=== PATIENT | female | born 1955 | race Caucasian/White ===

== ENCOUNTER 2017-07-08 12:37 | Emergency (ER) | payer BC, OTHER ==
[2017-07-08 12:53] VITALS: BP 105/60; PULSE 87; TEMP 99.7; BMI 27.4
--- NOTE | 2017-07-08 12:54 | PDOC ---
Attending Attestation - HPI HPI: 07/08/17 14:28 The patient is a 61 year old female with a significant PMH of hypothyroidism, anxiety, and depression who presents to the emergency department s/p witnessed syncopal episode today. The patient reports being at Urgent Care for evaluation of flu-like symptoms (102F fever and cough) and dizziness when she had a syncopal episode witnessed by her . She denies any numbness, tingling, or weakness. She denies pre-syncopal chest pain or shortness of breath. Allergies: Sulfonamide antibiotics. <Luís Campbell - Last Filed: 07/08/17 14:28> - Resident Resident Name: Kevin Costa - ED Attending Attestation I have performed the following: I have examined & evaluated the patient, The case was reviewed & discussed with the resident, I agree w/resident's findings & plan, Exceptions are as noted - Physicial Exam PE: GENERAL: Awake, alert, and fully oriented. Appears ill but nontoxic. HEAD: No signs of trauma EYES: PERRLA, EOMI, sclera anicteric, conjunctiva clear ENT: Auricles normal inspection, hearing grossly normal, nares patent, oropharynx clear without exudates. Dry mucosa NECK: Normal ROM, supple, no lymphadenopathy, JVD, or masses LUNGS: Breath sounds equal, clear to auscultation bilaterally. No wheezes, and no crackles HEART: Regular rate and rhythm, normal S1 and S2, no murmurs, rubs or gallops ABDOMEN: Soft, nontender, normoactive bowel sounds. No guarding, no rebound. No masses EXTREMITIES: Normal range of motion, no edema. No clubbing or cyanosis. No cords, erythema, or tenderness NEUROLOGICAL: Cranial nerves II through XII grossly intact. Normal speech, normal gait SKIN: Warm, Dry, normal turgor, no rashes or lesions noted. - Medical Decision Making Suspect symptoms are secondary to influenza. Will give IV hydration in ED, check CE, EKG, CXR. <Stephanie Zheng - Last Filed: 07/11/17 13:56>
[2017-07-08] MEDS ORDERED: SODIUM CHLORIDE 0.9% 1000 ML INFUS.BAG IV ONE (13:24)
[2017-07-08] MEDS ORDERED: ACETAMINOPHEN 1000 MG/100 ML VIAL (NON FORMULARY) IVPB ONE (13:24)
[2017-07-08] MEDS ORDERED: ACETAMINOPHEN INJECTION 100 ML IVPB ONE (13:25)
[2017-07-08 13:27] LABS: BASO % 0.3 % (0-2.0); EOS % 0.1 % (0-4.5); HEMATOCRIT 43.6 % (32.4-45.2); HEMOGLOBIN 14.2 GM/dL (10.7-15.3); LYMPH % 4.1 % (8-40); MCHC 32.5 g/dl (32.0-36.0); MEAN CELL VOLUME 92.3 fl (80-96); MEAN PLT VOLUME 9.3 fl (7.5-11.1); MONO % 7.5 % (3.8-10.2); PLATELET COUNT 146 K/MM3 (134-434); RBC 4.72 M/mm3 (3.60-5.2); RDW 13.4 % (11.6-15.6); WHITE BLOOD COUNT 8.9 K/mm3 (4.0-10.0)
--- NOTE | 2017-07-08 13:46 | PDOC ---
History of Present Illness - General History Source: Patient Exam Limitations: No Limitations - History of Present Illness Initial Comments: 07/08/17 13:27 The patient is a 61F with a PMH of hypothyroidism, anxiety, and depression who presents to the ER after having a syncopal episode. The patient states that she began having flu-like symptoms yesterday, starting with a cough, sore throat, then a fever. She states that she felt dizzy last night, then her symptoms resolved once she laid down. Today, she went to an urgent care and was found to have a fever of 102. While at the urgent care, she had a syncopal episode that was witnessed by her . They both deny any disorientation, shaking, tongue biting, and bowel/bladder incontinence. She denies any CP, SOB, numbness , tingling, or weakness before, during, or after this episode. Her only complaint is dizziness which she describes as both lightheadedness and room spinning, along with a fever. <Kevin Costa - Last Filed: 07/08/17 15:49> <Stephanie Zheng - Last Filed: 07/08/17 16:31> - General Chief Complaint: Syncope/Near Syncope Stated Complaint: SYNCOPE Time Seen by Provider: 07/08/17 12:52 Past History - Past Medical History Anemia: No Asthma: Yes Cancer: No Cardiac Disorders: No CVA: No COPD: No CHF: No Dementia: No Diabetes: No GI Disorders: No Disorders: No HTN: No Hypercholesterolemia: No Liver Disease: No Seizures: No Thyroid Disease: Yes - Surgical History Abdominal Surgery: No Appendectomy: No Cardiac Surgery: No Cholecystectomy: No Lung Surgery: No Neurologic Surgery: No Orthopedic Surgery: Yes (r bunionectomy 2005, r wrist sx 2007) - Suicide/Smoking/Psychosocial Hx Smoking History: Never smoked Have you smoked in the past 12 months: No If you are a former smoker, when did you quit?: 20 years Information on smoking cessation initiated: No Hx Alcohol Use: No Drug/Substance Use Hx: No Substance Use Type: None Hx Substance Use Treatment: No <Kevin Costa - Last Filed: 07/08/17 15:49> <Stephanie Zheng - Last Filed: 07/08/17 16:31> - Past Medical History Allergies/Adverse Reactions: Allergies Allergy/AdvReac Type Severity Reaction Status Date / Time Sulfa (Sulfonamide Allergy Severe Hives Verified 07/08/17 12:40 Antibiotics) Home Medications: Ambulatory Orders Alprazolam 1 mg PO PRN PRN 07/24/15 Levothyroxine [Synthroid -] 112 mcg PO DAILY 07/24/15 Trazodone HCl 100 mg PO HS 07/24/15 Citalopram Hydrobromide [Celexa -] 40 mg PO DAILY 07/08/17 Review of Systems - Review of Systems Able to Perform ROS?: Yes Comments:: 07/08/17 14:08 GENERAL/CONSTITUTIONAL: Positive for fevers and chills. No weakness. HEAD, EYES, EARS, NOSE AND THROAT: Positive for sore throat. No change in vision. No ear pain or discharge. CARDIOVASCULAR: No chest pain, palpitations, or lightheadedness. RESPIRATORY: Positive for cough. No wheezing, shortness of breath, or hemoptysis. GASTROINTESTINAL: Positive for nausea. No vomiting, diarrhea, constipation, or abdominal pain. GENITOURINARY: No dysuria, frequency, hematuria, or change in urination. MUSCULOSKELETAL: Postive for myalgias. No neck or back pain. SKIN: No rash or lesions. NEUROLOGIC: Positive for headache and dizziness and LOC. No numbness, tingling, weakness, or change in strength/sensation. ENDOCRINE: No increased thirst. No abnormal weight change. HEMATOLOGIC/LYMPHATIC: No anemia, easy bleeding, or history of blood clots. ALLERGIC/IMMUNOLOGIC: No hives or skin allergy. Is the patient limited [place]an proficient: No <Kevin Costa - Last Filed: 07/08/17 15:49> *Physical Exam - Vital Signs Last Vital Signs Temp Pulse Resp BP Pulse Ox 99.7 F H 87 18 105/60 95 07/08/17 12:48 07/08/17 12:48 07/08/17 12:48 07/08/17 12:48 07/08/17 12:48 - Physical Exam Comments: 07/08/17 14:10 GENERAL: Well developed, well nourished. Awake and alert. No acute distress. HEENT: Normocephalic, atraumatic. Hearing grossly normal. Moist mucous membranes. PERRLA, EOMI. No conjunctival pallor. Sclera are non-icteric. Oropharynx is clear. NECK: Supple. Full ROM. No JVD. CARDIOVASCULAR: Regular rate and rhythm. No murmurs, rubs, or gallops. PULMONARY: No evidence of respiratory distress. Lungs clear to auscultation bilaterally. No wheezing, rales or rhonchi. ABDOMINAL: Soft. Non-tender. Non-distended. No rebound or guarding. GENITOURINARY: No CVA tenderness bilaterally. MUSCULOSKELETAL: Normal range of motion at all joints. No bony deformities or tenderness. EXTREMITIES: No cyanosis. No clubbing. No edema. No calf tenderness. SKIN: Warm and dry. Normal capillary refill. No rashes. No jaundice. NEUROLOGICAL: Alert, awake, appropriate. Cranial nerves 2-12 intact. No deficits to light touch and temperature in face, upper extremities and lower extremities. No motor deficits in the in face, upper extremities and lower extremities. Finger to nose normal b/l. Normal speech. Gait is normal without ataxia. PSYCHIATRIC: Cooperative. Good eye contact. Appropriate mood and affect. <Kevin Costa - Last Filed: 07/08/17 15:49> - Vital Signs Last Vital Signs Temp Pulse Resp BP Pulse Ox 99.7 F H 87 18 105/60 95 07/08/17 12:48 07/08/17 12:48 07/08/17 12:48 07/08/17 12:48 07/08/17 12:48 <Stephanie Zheng - Last Filed: 07/08/17 16:31> Heart Score/ECG Review #1 ECG reviewed & interpreted by me at: 13:26 General ECG Interpretation: Sinus Rhythm, Normal Rate, Normal Intervals, No acute ischemic changes Compared to previous ECG there are: Previous ECG unavail 07/08/17 14:10 NSR rate 86 TX 144 QRS 98 QTc 464 No acute ischemic changes noted <Kevin Costa - Last Filed: 07/08/17 15:49> ED Treatment Course - LABORATORY CBC & Chemistry Diagram: 07/08/17 13:15 07/08/17 13:15 - RADIOLOGY Radiology Studies Ordered: Category Date Time Status HEAD CT WITHOUT CONTRAST [CT] Stat CT Scan 07/08/17 13:06 Ordered CHEST PA & LAT [RAD] Stat Radiology 07/08/17 13:06 Ordered <Kevin Costa - Last Filed: 07/08/17 15:49> - LABORATORY CBC & Chemistry Diagram: 07/08/17 13:15 07/08/17 13:15 - ADDITIONAL ORDERS Additional order review: Laboratory Results 07/08/17 07/08/17 13:15 13:15 PT with INR 12.60 H INR 1.12 PTT (Actin FS) 30.9 Sodium 139 Potassium 3.8 Chloride 104 Carbon Dioxide 26 Anion Gap 9 BUN 14 Creatinine 1.0 Creat Clearance w eGFR 56.56 Random Glucose 113 H Calcium 8.6 Magnesium 2.1 Total Bilirubin 0.9 AST 21 ALT 21 Alkaline Phosphatase 65 Creatine Kinase 92 Troponin I < 0.02 Total Protein 6.4 Albumin 3.7 07/08/17 13:15 RBC 4.72 MCV 92.3 MCHC 32.5 RDW 13.4 MPV 9.3 Neutrophils % 88.0 H Lymphocytes % 4.1 L Monocytes % 7.5 Eosinophils % 0.1 Basophils % 0.3 - Medications Given in the ED: ED Medications Discontinued Medications Generic Name Dose Route Start Last Admin Trade Name Luisq PRN Reason Stop Dose Admin Acetaminophen 1,000 mg 07/08/17 13:24 07/08/17 13:31 Ofirmev Injection - IVPB 07/08/17 13:25 1,000 mg ONCE ONE Administration Sodium Chloride 1,000 ml 07/08/17 13:24 07/08/17 13:31 Normal Saline - IV 07/08/17 13:25 1,000 ml ONCE ONE Administration <Stephanie Zheng - Last Filed: 07/08/17 16:31> Medical Decision Making - Medical Decision Making 07/08/17 14:11 The patient is a 61F with a PMH of anxiety, depression, and hypothyroidism who presents after a syncopal episode. EKG, labs, and CXR negative. Pt is sitting comfortably in bed with no complaints. Will discuss dispo with attending. <Kevin Costa - Last Filed: 07/08/17 15:49> *DC/Admit/Observation/Transfer <Kevin Costa - Last Filed: 07/08/17 15:49> - Discharge Dispostion Admit: No <Stephanie Zheng - Last Filed: 07/08/17 16:31> Diagnosis at time of Disposition: Syncope Qualifiers: Syncope type: unspecified Qualified Code(s): R55 - Syncope and collapse - Discharge Dispostion Disposition: HOME Condition at time of disposition: Stable - Patient Instructions Printed Discharge Instructions: DI for Syncope in Adults (Fainting)
[2017-07-08 13:48] LABS: INR 1.12 (0.82-1.09); PROTHROMBIN TIME (PATIENT) 12.6 SEC (9.98-11.88)
[2017-07-08 13:50] LABS: ACTIVATED PTT 30.9 SECONDS (26.9-34.4)
[2017-07-08 14:03] LABS: ALBUMIN 3.7 g/dl (3.4-5.0); ANION GAP 9 (8-16); BILIRUBIN,TOTAL 0.9 mg/dL (0.2-1.0); BLOOD UREA NITROGEN 14 mg/dL (7-18); CALCIUM 8.6 mg/dL (8.5-10.1); CHLORIDE 104 mmol/L (98-107); CO2 26 mmol/L (21-32); GLUCOSE,RANDOM 113 mg/dL (74-106); MAGNESIUM 2.1 mg/dL (1.8-2.4); POTASSIUM 3.8 mmol/L (3.5-5.1); SGOT/AST 21 U/L (15-37); SGPT/ALT 21 U/L (12-78); SODIUM 139 mmol/L (136-145)
[2017-07-08 14:06] LABS: ALK PHOS 65 U/L (45-117); TOT PROT 6.4 g/dl (6.4-8.2)
--- NOTE | 2017-07-09 09:33 | EKG ---
Test Reason : Blood Pressure : / mmHG Vent. Rate : 086 BPM Atrial Rate : 086 BPM P-R Int : 144 ms QRS Dur : 098 ms QT Int : 388 ms P-R-T Axes : 061 053 058 degrees QTc Int : 464 ms NORMAL SINUS RHYTHM NORMAL ECG WHEN COMPARED WITH ECG OF 02-APR-2005 10:44, NO SIGNIFICANT CHANGE WAS FOUND Confirmed by NATALI WOODS MD ([id number]) on 07/09/2017 9:33:22 AM Referred By: Confirmed By:NATALI WOODS MD
== END 2017-07-08 16:42 | disposition home or self-care (01) ==
LOC: JER 12:37
PROC: 3E033NZ Introduction of Analgesics, Hypnotics, Sedatives into Peripheral Vein, Percutaneous Approach (ICD-10-PCS; principal; 2017-07-08)
DX: R55 Syncope and collapse (principal); E03.9 Hypothyroidism, unspecified; F41.8 Other specified anxiety disorders
CPT/HCPCS: 36415; 71046-TC-FY; 80053; 82550; 83735; 84484; 85025; 85610; 85730; 93005; 93010; 99283-25

== ENCOUNTER → 2022-03-17 | Day surgery (SDC) | payer BC ==
[2022-03-15 14:03] VITALS: BMI 27.4
[~2022-03-17] MED LIST: BUPIVACAINE HCL/PF 0.5% (5MG/ML) 10 ML VIAL ONE; BUPIVACAINE LIPOSOME/PF (EXPAREL) 266 MG/20 ML VIAL ONE; LACTATED RINGERS SOLUTION 1,000 ML IV SCH; LIDOCAINE HCL/PF 2% SDV 5ML VIAL ONE; MIDAZOLAM HCL 2 MG/2 ML SINGLE DOSE VIAL ONE; ONDANSETRON 4 MG/2 ML VIAL IVPUSH PRN; PROPOFOL 20 ML ONE; ceFAZolin 2 GRAM PREMIX BAG IVPB ONE; ceFAZolin SODIUM 1 GM VIAL ONE; oxyCODONE HCL 5 MG TABLET PO PRN
[2022-03-17 13:56] VITALS: RESP 16
[2022-03-17 15:12] VITALS: BP 137/73; PULSE 84; TEMP 98.2
== END | disposition home or self-care (01) ==
LOC: JASU-SURG 04:03
PROVIDERS: ATTEND Orthopaedic Surgery
PROC: 0LQP0ZZ Repair Left Lower Leg Tendon, Open Approach (ICD-10-PCS; principal; 2022-03-17 10:15)
DX: S86.012A Strain of left Achilles tendon, initial encounter (principal); X58.XXXA Exposure to other specified factors, initial encounter; Y93.9 Activity, unspecified; Y92.9 Unspecified place or not applicable; Y99.9 Unspecified external cause status
CPT/HCPCS: 94760; 97116-GP; C9803-CS; U0003; U0005